=== PATIENT | male | born 1985 | race Caucasian/White ===

== ENCOUNTER 2016-07-27 20:59 | Emergency (ER) | payer OTHER ==
--- NOTE | 2016-07-27 21:09 | PDOC ---
History of Present Illness - General History Source: Patient Exam Limitations: No Limitations - History of Present Illness Initial Comments: 07/27/16 21:55 The patient is a 30 year old male with a significant past medical history of testicular cancer, lymphoma, and post-traumatic brain injury(s/p skateboard injury), who presents to the emergency department complaining of nausea, vomiting, diarrhea, and chills for approximately 2 days. The patient reports his pain began at approximately 16:00 yesterday. He reports associated diaphoresis, which woke him in the middle of the night. The patient states he has not eaten in the past 48 hours is unable to tolerate any solids or fluids. Patient states he woke up feeling slightly better and was able to work. But at approximately 14:00 he reports his symptoms worsened, and could barely drive. The patient reports shortness of breath, chest tightness, and epigastric abdominal pain secondary to cough. He rates his epigastric pain as an 8/10 when coughing. He reports left lower quadrant abdominal pain, nausea, vomiting, diarrhea, and fever, but denies hemoptysis, melena, or hematochezia. He reports a severe headache since yesterday. He reports taking excedrin for headache with no relief. The patient reports his symptoms today are similar to when he had lymphoma in the past. The patient denies any dysuria, hematuria, frequency, or urgency. He reports a burning sensation at the nasal bridge, but denies any rhinorrhea.The patient denies any recent travel or sick contacts. The patient states he has lost approximately 15 pounds within the past month, and has been feeling increasingly fatigued. PAST MEDICAL HISTORY: Testicular cancer, Lymphoma PAST SURGICAL HISTORY: Orchiectomy, Abdominal surgery for lymph node resection. FAMILY HISTORY: Diabetes. SOCIAL HISTORY: Pt lives with family and is employed. Current everyday smoker ( approximately 1 pack per week for the past 10 years.) MEDICATIONS: reviewed ALLERGIES: As per nursing notes. Sulfa( Sulfonamide antibiotics) ONCOLOGIST: Dr. Garcias (last visited 10 years ago). <Domo Gonzalez - Last Filed: 07/27/16 21:55> - General History Source: Patient Exam Limitations: No Limitations - History of Present Illness Initial Comments: 07/28/16 00:33 Assessment and plan: This is a 30-year-old male with extensive history of both lymphatic as well as testicular cancer who comes in complaining of fever chills cough congestion and feeling poorly. Patient was noted to have a fever here in the emergency room for which she was given Tylenol. Patient had a workup done which revealed an elevated d-dimer and a chest CT was done to rule out PE. In addition to that patient had had some abdominal pain nausea and vomiting so a CT of the abdomen and pelvis was done to rule out obstruction and rule out metastatic lesions. Patient had a normal white count with no left shift and the rest of his labs were unremarkable with the exception of the elevated d-dimer. Patient's CAT scans were negative for any acute pathology with the exception of his chest did show a left lower lobe infiltrate. Patient was given an IV dose of IV ceftriaxone and by mouth azithromycin. For his pneumonia Patient given a prescription for outpatient azithromycin Patient was told no work until Sunday and given a note Patient will follow-up with his primary care DrRichard if not improved by early next week <Katheryn Gusman I - Last Filed: 07/28/16 00:36> - General Chief Complaint: Respiratory Stated Complaint: CHILLS Time Seen by Provider: 07/27/16 21:09 Past History <Domo Gonzalez - Last Filed: 07/27/16 21:55> <Katheryn Gusman I - Last Filed: 07/28/16 00:36> - Past Medical History Allergies/Adverse Reactions: Allergies Allergy/AdvReac Type Severity Reaction Status Date / Time blueberry Allergy Mild Rash Verified 07/27/16 21:13 raspberry Allergy Mild Rash Verified 07/27/16 21:13 strawberry Allergy Mild Rash Verified 07/27/16 21:13 Sulfa (Sulfonamide Allergy Mild Rash Verified 07/27/16 21:13 Antibiotics) BERRIES Allergy Mild Rash Uncoded 07/27/16 21:13 Home Medications: Ambulatory Orders Azithromycin 250 mg PO DAILY #4 tablet 07/28/16 Review of Systems - Review of Systems Able to Perform ROS?: Yes Comments:: 07/27/16 21:46 General: Yes: +Fever, +chills, +body aches, +diaphoresis, +fatigue, +weight loss. HEENT: Yes: +Nasal bridge burning. No change in vision. No sore throat. No ear pain CardioVascular: Yes: +Shortness of breath, +chest pressure Respiratory: Yes: +Nonproductive cough. No wheezing. Gastrointestinal: Yes:+Epigastric/ +Left lower quadrant pain, +nausea, + vomiting, +diarrhea. No constipation or rectal bleeding. Genitourinary: No dysuria, hematuria, or frequency Musculoskeletal: No joint or muscle swelling Neurologic: Yes: +Headache. No vertigo, dizziness or loss of consciousness Psychiatric: No depression Skin: No rashes or easy bruising Endocrine: Yes: +Decreased thirst, +weight loss. Allergic: no skin or latex allergy All other systems reviewed and normal <Domo Gonzalez - Last Filed: 07/27/16 21:55> *Physical Exam - Vital Signs Last Vital Signs Temp Pulse Resp BP Pulse Ox 102.1 F H 89 16 110/68 93 L 07/27/16 21:01 07/27/16 21:01 07/27/16 21:01 07/27/16 21:01 07/27/16 21:01 - Physical Exam Comments: 07/27/16 21:43 General: Well-nourished well-developed individual, no acute distress HEENT: Throat: Normal, tonsils normal, no erythema or exudate. Dry mucous membranes. Neck: Supple, no meningeal signs, no lymphadenopathy Eyes: Pupils equal reactive and round, extraocular motion intact Chest: Nontender to palpation Cardiac: S1-S2 normal, regular rate and rhythm, no murmurs rubs or gallops Respiratory: Decreased breath sounds bilaterally. Abdomen: Soft, nondistended, normal bowel sounds. Tenderness to the left lower quadrant, but no guarding or rebound. Extremities: Warm, dry, no cyanosis, clubbing, or edema Skin: No rashes Neuro: Alert and oriented x3, nonfocal exam, grossly intact, normal gait Psych: Normal mood and affect <Domo Gonzalez - Last Filed: 07/27/16 21:55> ED Treatment Course - LABORATORY CBC & Chemistry Diagram: 07/27/16 21:30 07/27/16 21:30 <Domo Gonzalez - Last Filed: 07/27/16 21:55> - LABORATORY CBC & Chemistry Diagram: 07/27/16 21:30 07/27/16 21:30 <Katheryn Gusman Last Filed: 07/28/16 00:36> *DC/Admit/Observation/Transfer - Attestations Scribe Attestion: 07/27/16 21:43 Documentation prepared by Domo Gonzalez, acting as medical claims manager for Katheryn Gusman MD. <Domo Gonzalez - Last Filed: 07/27/16 21:55> - Discharge Dispostion Admit: No <Katheryn Gusman I - Last Filed: 07/28/16 00:36> Diagnosis at time of Disposition: Pneumonia Qualifiers: Pneumonia type: due to unspecified organism Laterality: left Lung location: lower lobe of lung Qualified Code(s): J18.1 - Lobar pneumonia, unspecified organism - Discharge Dispostion Disposition: HOME Condition at time of disposition: Good - Prescriptions Prescriptions: Azithromycin 250 mg PO DAILY #4 tablet - Patient Instructions Additional Instructions: Take Tylenol or Motrin as needed for fevers or pain. Take azithromycin 1 tablet a day for the next 4 days for the pneumonia. No work until Sunday stay at home, rest, and stay well-hydrated. Return to the emergency department immediately with ANY new, persistent or worsening symptoms. Continue any medications as previously prescribed by your physician. You should follow up with your primary doctor as soon as possible regarding today's emergency department visit. . Please make sure your doctor reviews the results of your emergency evaluation. Thank you for coming to the Emergency Department today for your care. It was a pleasure to see you today. Please note that your evaluation is INCOMPLETE until you follow-up with your doctor. - Post Discharge Activity Work/School Note: Back to Work
[2016-07-27 21:27] VITALS: BMI 28.9
[2016-07-27] MEDS ORDERED: ACETAMINOPHEN 1000 MG/100 ML VIAL (NON FORMULARY) IVPB ONE (22:06)
[2016-07-27] MEDS ORDERED: ACETAMINOPHEN INJECTION 100 ML IVPB ONE (22:06)
[2016-07-27 22:13] LABS: ACTIVATED PTT 29.6 SECONDS (24.0-38.9)
[2016-07-27 22:14] LABS: ALBUMIN 4.3 g/dl (3.5-5.0); ALK PHOS 68 U/L (32-92); ANION GAP 9 (8-16); BILIRUBIN,TOTAL 0.3 mg/dl (0.2-1.0); CALCIUM 9.3 mg/dl (8.4-10.2); CO2 25 mmol/L (22-28); CREATININE 0.9 mg/dl (0.6-1.3); GLUCOSE,RANDOM 105 mg/dl (74-106); SGOT/AST 15 U/L (10-42); SGPT/ALT 12 U/L (10-40); TOT PROT 7.1 g/dl (6.4-8.3)
[2016-07-27 22:17] LABS: BASOPHIL 0.4 % (0-2.0); EOSINOPHIL 1.1 % (0-4.5); INR 1.21 (0.82-1.09); MCH 27.2 pg (25.7-33.7); MCHC 33.4 g/dl (32.0-35.9); MEAN CELL VOLUME 81.4 fl (80-96); MEAN PLT VOLUME 8.8 fl (7.5-11.1); NEUTROPHILS 73.1 % (42.8-82.8); PLATELET COUNT 227 K/MM3 (134-434); PROTHROMBIN TIME (PATIENT) 13.5 SEC (10.2-13.0); RDW 12.8 % (11.9-15.9); WHITE BLOOD COUNT 10.8 K/mm3 (4.0-10.8)
[2016-07-27 22:30] LABS: VENOUS BLOOD GAS HCO3 25.9 meq/L (22-26); VENOUS PH 7.45 (7.35-7.45)
[2016-07-27 22:55] LABS: PH,URINE 6.5 (4.5-8); URINE APPEARANCE Clear; URINE BILIRUBIN Negative (NEGATIVE); URINE GLUCOSE (UA) Negative (NEGATIVE); URINE KETONE 1+ (NEGATIVE); URINE LEUK ESTERASE Negative (NEGATIVE); URINE NITRITE Negative (NEGATIVE); URINE PROTEIN Negative (NEGATIVE); URINE UROBILINOGEN 0.2 E.U/dl (0.2-1.0)
[2016-07-27 23:06] LABS: HIV 1 & 2 AB NEGATIVE; HIV 1 AGp24 NEGATIVE
[2016-07-27 23:10] LABS: URINE BLOOD 1+ (NEGATIVE); URINE COLOR YELLOW
[2016-07-27 23:13] LABS: URINE WBC 0-2 (3-5)
[2016-07-28 00:01] VITALS: BP 103/60; PULSE 68; TEMP 98.9
[2016-07-28] MEDS ORDERED: cefTRIAXone SODIUM 1 GM VIAL ONE (00:31)
[2016-07-28] MEDS ORDERED: CEFTRIAXONE 1 GM in DEXTROSE 5%-WATER - 50 ML IVPB ONE (00:31)
[2016-07-28] MEDS ORDERED: AZITHROMYCIN 250 MG TABLET (FP) PO ONE ×2 (00:31→00:39)
[2016-07-28] MEDS ORDERED: AZITHROMYCIN 250 MG TABLET (FP) ONE (00:38)
== END 2016-07-28 01:01 | disposition home or self-care (01) ==
LOC: FER 20:59
PROC: 3E033NZ Introduction of Analgesics, Hypnotics, Sedatives into Peripheral Vein, Percutaneous Approach (ICD-10-PCS; principal; 2016-07-27)
PROC: 3E03329 Introduction of Other Anti-infective into Peripheral Vein, Percutaneous Approach (ICD-10-PCS; 2016-07-27)
DX: J18.1 Lobar pneumonia, unspecified organism (principal); Z85.47 Personal history of malignant neoplasm of testis; C85.90 Non-Hodgkin lymphoma, unspecified, unspecified site; S06.9X0A Unspecified intracranial injury without loss of consciousness, initial encounter
CPT/HCPCS: 36415; 71010-TC; 71275-TC; 74177-TC; 74190-TC; 80053; 81003; 81015; 82803; 83605; 85025; 85379; 85610; 85730; 87040; 87389; 99284-25

== ENCOUNTER 2017-04-16 12:22 | Emergency (ER) | payer OTHER ==
[2017-04-16 12:28] VITALS: BP 120/77; PULSE 75; TEMP 98.4; BMI 25.9
--- NOTE | 2017-04-16 13:19 | PDOC ---
History of Present Illness - General Chief Complaint: Back Pain Stated Complaint: BACK PAIN Time Seen by Provider: 04/16/17 13:02 - History of Present Illness Initial Comments: 04/16/17 13:24 31yo M history of testicular and lymphatic cancer (s/p orchiectomy and abdominal lymph node dissection approx 8 years ago) and traumatic brain injury from skateboarding accident presents with 1 week of intermittent right-sided back pain after lifting an 80 pound amp. The patient reports his pain now is localized to the right lower back pain and radiates down his buttocks and his posterior right leg. He states the pain comes and goes, and he went to an urgent care clinic last week for the same. He reports he was prescribed a medication that was a little stronger than Motrin but only took it once because she said it didn't improve his pain. He reports the pain returned yesterday and this prompted him to present to the emergency department today. He reports he is worried that his cancer may have returned and requests an x-ray or MRI. He denies any fevers or chills. 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 He denies any weight loss or sweats or testicular pain. He denies any urinary/stool incontinence or retention. He denies any weakness in his legs or difficulty walking. He denies chest pain, shortness of breath, headaches, focal weakness or numbness. Past History - Past Medical History Allergies/Adverse Reactions: Allergies Allergy/AdvReac Type Severity Reaction Status Date / Time blueberry Allergy Mild Rash Verified 04/16/17 12:23 raspberry Allergy Mild Rash Verified 04/16/17 12:23 strawberry Allergy Mild Rash Verified 04/16/17 12:23 Sulfa (Sulfonamide Allergy Mild Rash Verified 04/16/17 12:23 Antibiotics) BERRIES Allergy Mild Rash Uncoded 04/16/17 12:23 Home Medications: Ambulatory Orders Cyclobenzaprine HCl [Flexeril 10 mg] 10 mg PO BID PRN #10 tablet 04/16/17 Naproxen 500 mg PO BID PRN #14 tablet 04/16/17 Anemia: No Asthma: No Cancer: Yes (TESTICULAR & LYMPHNODIC) Cardiac Disorders: No CVA: No COPD: No CHF: No Dementia: No Diabetes: No GI Disorders: No Disorders: No HTN: No Hypercholesterolemia: No Liver Disease: No Seizures: No Thyroid Disease: No - Surgical History Abdominal Surgery: Yes (Lymph nodes, incision to abdomen.) Appendectomy: No Cardiac Surgery: No Cholecystectomy: No Lung Surgery: No Neurologic Surgery: No Orthopedic Surgery: No - Suicide/Smoking/Psychosocial Hx Smoking History: Current every day smoker Have you smoked in the past 12 months: Yes Number of Cigarettes Smoked Daily: 4 Information on smoking cessation initiated: Yes 'Breaking Loose' booklet given: 04/16/17 Hx Alcohol Use: (weekly) Drug/Substance Use Hx: No Substance Use Type: None Hx Substance Use Treatment: No Review of Systems - Review of Systems Comments:: 04/16/17 13:30 GENERAL/CONSTITUTIONAL: No fever or chills. No weakness. HEAD, EYES, EARS, NOSE AND THROAT: No change in vision. No ear pain or discharge. No sore throat. GASTROINTESTINAL: No nausea, vomiting, diarrhea or constipation. GENITOURINARY: No dysuria, frequency, or change in urination. CARDIOVASCULAR: No chest pain or shortness of breath. RESPIRATORY: No cough, wheezing, or hemoptysis. MUSCULOSKELETAL: No joint or muscle swelling or pain. No neck pain. +back pain SKIN: No rash NEUROLOGIC: No headache, vertigo, loss of consciousness, or change in strength/ sensation. ENDOCRINE: No increased thirst. No abnormal weight change. HEMATOLOGIC/LYMPHATIC: No anemia, easy bleeding, or history of blood clots. ALLERGIC/IMMUNOLOGIC: No hives or skin allergy. *Physical Exam - Vital Signs Last Vital Signs Temp Pulse Resp BP Pulse Ox 98.4 F 75 18 120/77 100 04/16/17 12:22 04/16/17 12:22 04/16/17 12:22 04/16/17 12:22 04/16/17 12:22 - Physical Exam Comments: 04/16/17 13:30 GENERAL: Awake, alert, and fully oriented, in no acute distress HEAD: No signs of trauma EYES: PERRLA, EOMI, sclera anicteric, conjunctiva clear ENT: Auricles normal inspection, hearing grossly normal, nares patent, oropharynx clear without exudates. Moist mucosa NECK: Normal ROM, supple, no lymphadenopathy, JVD, or masses LUNGS: Breath sounds equal, clear to auscultation bilaterally. No wheezes, and no crackles HEART: Regular rate and rhythm, normal S1 and S2, no murmurs, rubs or gallops ABDOMEN: Soft, nontender, normoactive bowel sounds. No guarding, no rebound. No masses EXTREMITIES: Normal range of motion, no edema. No clubbing or cyanosis. No cords, erythema, or tenderness NEUROLOGICAL: Normal speech, cranial nerves intact, negative pronator drift, 5/ 5 strength in all 4 extremities, normal sensation to light touch in all 4 extremities, normal cerebellar exam, normal gait, normal reflexes and tone BACK: no midline cervical, thoracic, or lumbar ttp. +R paraspinal lumbar ttp. SKIN: Warm, Dry, normal turgor, no rashes or lesions noted. Medical Decision Making - Medical Decision Making 04/16/17 13:31 31-year-old male presents with right-sided back pain after lifting a heavy object 1 week ago. Vitals unremarkable. Exam remarkable only for right paraspinal lumbar tenderness to palpation. Pain is likely musculoskeletal pain, probable muscle spasm with sciatica. It is possible he may have also herniated a disc, however he has no lower extremity weakness or urinary incontinence or retention and also has normal reflexes and thus unlikely cauda equina. Given the history of cancer, will obtain radiographs of his back to look for metastatic lesions. In the meantime, will also treat pain with Toradol and Tylenol. Patient will be driving home and thus cannot give any medications at we 'll make him drowsy. *DC/Admit/Observation/Transfer Diagnosis at time of Disposition: Back pain - Discharge Dispostion Disposition: HOME Condition at time of disposition: Stable Admit: No - Prescriptions Prescriptions: Cyclobenzaprine HCl [Flexeril 10 mg] 10 mg PO BID PRN #10 tablet PRN Reason: Muscle Spasms Naproxen 500 mg PO BID PRN #14 tablet PRN Reason: Pain - Referrals Referrals: Marek Price MD [Staff Physician] - Driss Ellison MD [Staff Physician] - - Patient Instructions Printed Discharge Instructions: DI for Low Back Pain, DI for Thoracic Back Pain Additional Instructions: Call Dr. Price's office for a follow-up appointment within one week. Your x- rays in the emergency department were negative, however, you must follow-up with a primary doctor for further testing to make sure your not pain is due to cancer. Take naproxen twice a day as needed for back pain. Return to the emergency department if you have any new, worsening or concerning symptoms. - Post Discharge Activity - Attestations Physician Attestion: 04/16/17 14:47 I, Dr. Dinesh Cordero MD, attest that this document has been prepared under my direction and personally reviewed by me in its entirety. I further attest, that it accurately reflects all work, treatment, procedures and medical decision -making performed by me.
[2017-04-16] MEDS ORDERED: KETOROLAC TROMETHAMINE 15 MG/ML VIAL IM ONE (13:20)
[2017-04-16] MEDS ORDERED: ACETAMINOPHEN 500 MG TABLET (FP) PO ONE (13:21)
[2017-04-16] MEDS ORDERED: KETOROLAC TROMETHAMINE 15 MG/ML VIAL ONE (13:25)
[2017-04-16] MEDS ORDERED: ACETAMINOPHEN 500 MG TABLET (FP) ONE (13:25)
== END 2017-04-16 14:45 | disposition home or self-care (01) ==
LOC: FER 12:22
PROC: 3E0233Z Introduction of Anti-inflammatory into Muscle, Percutaneous Approach (ICD-10-PCS; principal; 2017-04-16)
DX: M54.9 Dorsalgia, unspecified (principal); Z85.47 Personal history of malignant neoplasm of testis; Z87.898 Personal history of other specified conditions; S06.9X0A Unspecified intracranial injury without loss of consciousness, initial encounter; F17.210 Nicotine dependence, cigarettes, uncomplicated
CPT/HCPCS: 72070-TC; 72100-TC; 96372; 99283-25

== ENCOUNTER 2018-03-18 06:21 | Emergency (ER) | payer OTHER ==
[2018-03-18 06:26] VITALS: BP 115/74; PULSE 69; TEMP 97.6; BMI 26.0
--- NOTE | 2018-03-18 06:35 | PDOC ---
History of Present Illness - General Chief Complaint: Hemorrhoids Stated Complaint: HEMORRHOIDS Past History - Past Medical History Allergies/Adverse Reactions: Allergies Allergy/AdvReac Type Severity Reaction Status Date / Time blueberry Allergy Mild Rash Verified 04/16/17 12:23 raspberry Allergy Mild Rash Verified 04/16/17 12:23 strawberry Allergy Mild Rash Verified 04/16/17 12:23 Sulfa (Sulfonamide Allergy Mild Rash Verified 04/16/17 12:23 Antibiotics) BERRIES Allergy Mild Rash Uncoded 04/16/17 12:23 Home Medications: Ambulatory Orders Hydrocortisone [Proctosol-Hc] 1 gm TP TID #1 tube 03/18/18 Lidocaine 2% Jelly [Xylocaine 2% Jelly -] 1 applic TP TID #1 tube 03/18/18 Anemia: No Asthma: No Cancer: Yes (TESTICULAR & LYMPHNODIC) Cardiac Disorders: No CVA: No COPD: No CHF: No Dementia: No Diabetes: No GI Disorders: No Disorders: No HTN: No Hypercholesterolemia: No Liver Disease: No Seizures: No Thyroid Disease: No - Surgical History Abdominal Surgery: Yes (Lymph nodes, incision to abdomen.) Appendectomy: No Cardiac Surgery: No Cholecystectomy: No Lung Surgery: No Neurologic Surgery: No Orthopedic Surgery: No - Suicide/Smoking/Psychosocial Hx Smoking History: Never smoked Have you smoked in the past 12 months: Yes Number of Cigarettes Smoked Daily: 4 'Breaking Loose' booklet given: 04/16/17 Hx Alcohol Use: (weekly) Drug/Substance Use Hx: No Substance Use Type: None Hx Substance Use Treatment: No *Physical Exam - Vital Signs Last Vital Signs Temp Pulse Resp BP Pulse Ox 97.6 F 69 16 115/74 98 03/18/18 06:22 03/18/18 06:22 03/18/18 06:22 03/18/18 06:22 03/18/18 06:22 Moderate Sedation - Procedure Monitoring Vital Signs: Procedure Monitoring Vital Signs Temperature 97.6 F 03/18/18 06:22 Pulse Rate 69 03/18/18 06:22 Respiratory Rate 16 03/18/18 06:22 Blood Pressure 115/74 03/18/18 06:22 O2 Sat by Pulse Oximetry (%) 98 03/18/18 06:22 *DC/Admit/Observation/Transfer Diagnosis at time of Disposition: Thrombosed external hemorrhoids - Discharge Dispostion Disposition: HOME Condition at time of disposition: Stable - Referrals Referrals: Shweta Nicole [Primary Care Provider] - Driss Alexander MD [Staff Physician] - 2 Days - Patient Instructions Printed Discharge Instructions: DI for Hemorrhoids Additional Instructions: Sitz baths in warm water at least 5-6 times per day and after bowel movements ProctosolHC to area 3 X day Lidocaine jelly to area 3 X day continue high fiber diet; avoid prolonged standing call Dr Alexander's office today to arrange appointment within 2-3 days - Post Discharge Activity
== END 2018-03-18 07:10 | disposition home or self-care (01) ==
LOC: FER 06:21
DX: K64.5 Perianal venous thrombosis (principal); Z87.891 Personal history of nicotine dependence
CPT/HCPCS: 99282-25

== ENCOUNTER 2019-02-24 09:52 | Emergency (ER) | payer SELFPAY ==
--- NOTE | 2019-02-24 10:06 | PDOC ---
History of Present Illness - General Chief Complaint: Back Pain Stated Complaint: BACK PAIN Time Seen by Provider: 02/24/19 10:06 - History of Present Illness Initial Comments: 02/24/19 10:56 Pt presents to the ED complaining of the acute onset of lumbar back pain after lifting his child over his head. Pain is sharp, stabbing, made worse by movement, and by coughing. Patient denies trauma. Pain is severe and radiates down his R leg. It is accompanied by slight numbness of his R thigh. Denies weakeness. Tried ibuprofen yesterday without relief. No bowel or bladder complaints. 02/24/19 11:12 Past History - Past Medical History Allergies/Adverse Reactions: Allergies Allergy/AdvReac Type Severity Reaction Status Date / Time blueberry Allergy Mild Rash Verified 04/16/17 12:23 raspberry Allergy Mild Rash Verified 04/16/17 12:23 strawberry Allergy Mild Rash Verified 04/16/17 12:23 Sulfa (Sulfonamide Allergy Mild Rash Verified 04/16/17 12:23 Antibiotics) BERRIES Allergy Mild Rash Uncoded 04/16/17 12:23 Home Medications: Ambulatory Orders NK [No Known Home Medication] 02/24/19 Anemia: No Asthma: No Cancer: Yes (TESTICULAR & LYMPHNODIC) Cardiac Disorders: No CVA: No COPD: No CHF: No Dementia: No Diabetes: No GI Disorders: No Disorders: No HTN: No Hypercholesterolemia: No Liver Disease: No Seizures: No Thyroid Disease: No - Surgical History Abdominal Surgery: Yes (Lymph nodes, incision to abdomen.) Appendectomy: No Cardiac Surgery: No Cholecystectomy: No Lung Surgery: No Neurologic Surgery: No Orthopedic Surgery: No - Psycho Social/Smoking Cessation Hx Smoking History: Never smoked Have you smoked in the past 12 months: Yes Number of Cigarettes Smoked Daily: 4 'Breaking Loose' booklet given: 04/16/17 Hx Alcohol Use: (weekly) Drug/Substance Use Hx: No Substance Use Type: None Hx Substance Use Treatment: No Review of Systems - Review of Systems Able to Perform ROS?: Yes Is the patient limited Italian proficient: No Constitutional: No: Symptoms Reported, See HPI, Chills, Diaphoresis, Fever, Loss of Appetite, Malaise, Night Sweats, Weakness, Weight Stable, Unintentional Wgt. Loss, Unexplained wgt Loss, Other HEENTM: No: Symptoms Reported, See HPI, Eye Pain, Blurred Vision, Tearing, Recent change in vision, Double Vision, Cataracts, Ear Pain, Ocular Prothesis, Ear Discharge, Nose Pain, Nose Congestion, Tinnitus, Nose Bleeding, Hearing Loss , Throat Pain, Throat Swelling, Mouth Pain, Dental Problems, Difficulty Swallowing, Mouth Swelling, Other Respiratory: No: Symptoms reported, See HPI, Cough, Orthopnea, Shortness of Breath, SOB with Exertion, SOB at Rest, Stridor, Wheezing, Productive cough, Hemoptysis, Other Cardiac (ROS): No: Symptoms Reported, See HPI, Chest Pain, Edema, Irregular Heart Rate, Lightheadedness, Palpitations, Syncope, Chest Tightness, Other ABD/GI: No: Symptoms Reported, See HPI, Abdominal Distended, Abd. Pain w/ defecation, Blood Streaked Bowels, Constipated, Diarrhea, Difficulty Swallowing , Nausea, Poor Appetite, Poor Fluid Intake, Rectal Bleeding, Vomiting, Indigestion, Abdominal cramping, Tarry Stools, Other : No: Symptoms Reported, See HPI, Burning, Dysuria, Discharge, Frequency, Flank Pain, Hematuria, Incontinence, Pain, Urgency, Testicular Mass, Testicular Swelling, Lesions, Testicular Pain, Other Musculoskeletal: Yes: Back Pain. No: Symptoms Reported, See HPI, Gout, Joint Pain, Joint Swelling, Muscle Pain, Muscle Weakness, Neck Pain, Joint Stiffness, Other All Other Systems: Reviewed and Negative *Physical Exam - Physical Exam 02/24/19 11:12 Gen: alert, NAD CV: rrr no m/r/g Pulm: CTA b/l Abdomen: soft, non tender, non distended no Medical Decision Making - Medical Decision Making 02/24/19 11:36 Patient presents to the ED complaining of atraumatic back pain. Xray checked to rule out lytic lesions given history of malignancy and is negative. Pain improved after toradol and lidocaine patch in the ED. Will discharge home. Discharge - Discharge Information Problems reviewed: Yes Clinical Impression/Diagnosis: Back pain Qualifiers: Back pain location: low back pain Chronicity: acute Back pain laterality: right Sciatica presence: without sciatica Qualified Code(s): M54.5 - Low back pain Condition: Good Disposition: HOME - Admission No - Additional Discharge Information Prescription Drug Monitoring Program (I-STOP) results: I-STOP not reviewed - Follow up/Referral - Patient Discharge Instructions Patient Printed Discharge Instructions: DI for Low Back Pain Additional Instructions: you came to the ED for pain in your back. we did an xray, which showed scoliosis, but not a fracture. you should take ibuprofen for the pain and use a lidocaine patch. You should return immediately to the Ed for severe pain, problems controlling your bowels or your bladder, weakness in your legs. Follow up with your primary care doctor. - Post Discharge Activity Work/Back to School Note: Back to Work
[2019-02-24 10:07] VITALS: BP 118/67; PULSE 70; TEMP 97.9; BMI 25.8
[2019-02-24] MEDS ORDERED: LIDOCAINE 5% TOPICAL PATCH TP ONE (10:24)
[2019-02-24] MEDS ORDERED: KETOROLAC TROMETHAMINE 60 MG/2 ML VIAL IM ONE (10:24)
[2019-02-24] MEDS ORDERED: LIDOCAINE 5% TOPICAL PATCH ONE (10:26)
[2019-02-24] MEDS ORDERED: KETOROLAC TROMETHAMINE 60 MG/2 ML VIAL ONE (10:26)
[2019-02-24] MEDS ORDERED: LIDOCAINE PATCH REMOVAL MC SCH (22:00)
== END 2019-02-24 11:55 | disposition home or self-care (01) ==
LOC: FER 09:52
PROC: 3E0233Z Introduction of Anti-inflammatory into Muscle, Percutaneous Approach (ICD-10-PCS; principal; 2019-02-24)
DX: M54.5 Low back pain (principal); Z72.0 Tobacco use; Z91.018 Allergy to other foods; Z85.47 Personal history of malignant neoplasm of testis
CPT/HCPCS: 72070-TC-FY; 72100-TC-FY; 99282-25

== ENCOUNTER 2019-04-16 14:26 | Emergency (ER) | payer OTHER ==
[2019-04-16] MEDS ORDERED: SODIUM CHLORIDE 1,000 ML IV STA (14:39)
--- NOTE | 2019-04-16 14:39 | PDOC ---
Rapid Medical Evaluation Time Seen by Provider: 04/16/19 14:36 Medical Evaluation: Allergies Allergy/AdvReac Type Severity Reaction Status Date / Time blueberry Allergy Mild Rash Verified 04/16/19 14:34 raspberry Allergy Mild Rash Verified 04/16/19 14:34 strawberry Allergy Mild Rash Verified 04/16/19 14:34 Sulfa (Sulfonamide Allergy Mild Rash Verified 04/16/19 14:34 Antibiotics) BERRIES Allergy Mild Rash Uncoded 04/16/19 14:34 04/16/19 14:36 Pt presents for 2 days of fever, vomiting and RLQ pain. Was seen at urgent care and told to come to the ER for further evaluation. Also states that he may have been exposed to pesticides at work. H/O testicular cancer with L orechtomy and abdominal surgery to remove lymph nodes. Exam: TTP of the RLQ Orders: Labs, IV Pt to proceed to the ER for further evaluation Discharge Disposition - Diagnosis Abdominal pain Qualifiers: Abdominal location: right lower quadrant Qualified Code(s): R10.31 - Right lower quadrant pain - Referrals - Patient Instructions - Post Discharge Activity
[2019-04-16 14:40] VITALS: BMI 25.4
[2019-04-16 16:59] LABS: BASO % 0.3 % (0-2.0); EOS % 1.6 % (0-4.5); HEMATOCRIT 44.8 % (35.4-49); HEMOGLOBIN 14.5 GM/dL (11.7-16.9); MCH 27.3 pg (25.7-33.7); MCHC 32.4 g/dl (32.0-35.9); MEAN CELL VOLUME 84.2 fl (80-96); MEAN PLT VOLUME 8.5 fl (7.5-11.1); MONO % 5.2 % (3.8-10.2); NEUT % 62.9 % (42.8-82.8); PLATELET COUNT 280 K/MM3 (134-434); RBC 5.32 M/mm3 (4.00-5.60); RDW 13.9 % (11.9-15.9); WHITE BLOOD COUNT 11.4 K/mm3 (4.0-10.0)
--- NOTE | 2019-04-16 17:04 | PDOC ---
History of Present Illness - General Chief Complaint: Nausea/Vomiting Stated Complaint: SENT BY PCP/VOMITING Time Seen by Provider: 04/16/19 14:36 History Source: Patient Exam Limitations: No Limitations - History of Present Illness Initial Comments: 04/16/19 16:59 Patient is a 33-year-old male with a history of testicular cancer treated with an orchiectomy and lymphoma treated with lymph node resection 10 years ago. The patient states he never had chemo or radiation. He presents to the ED for evaluation of vomiting since yesterday. He states his vomiting is nonbloody and nonbilious. He is passing gas. He does admit to intermittent right mid abdominal pain for the last 5 to 6 months. He has not seen an oncologist or primary doctor in over a year secondary to not having insurance. He denies any fevers or chills. He does admit to having no energy. Past History - Past Medical History Allergies/Adverse Reactions: Allergies Allergy/AdvReac Type Severity Reaction Status Date / Time blueberry Allergy Mild Rash Verified 04/16/19 14:34 raspberry Allergy Mild Rash Verified 04/16/19 14:34 strawberry Allergy Mild Rash Verified 04/16/19 14:34 Sulfa (Sulfonamide Allergy Mild Rash Verified 04/16/19 14:34 Antibiotics) BERRIES Allergy Mild Rash Uncoded 04/16/19 14:34 Anemia: No Asthma: No Cancer: Yes (TESTICULAR & LYMPHNODIC) Cardiac Disorders: No CVA: No COPD: No CHF: No Dementia: No Diabetes: No GI Disorders: No Disorders: No HTN: No Hypercholesterolemia: No Liver Disease: No Seizures: No Thyroid Disease: No - Surgical History Abdominal Surgery: Yes (Lymph nodes, incision to abdomen.) Appendectomy: No Cardiac Surgery: No Cholecystectomy: No Lung Surgery: No Neurologic Surgery: No Orthopedic Surgery: No - Psycho Social/Smoking Cessation Hx Smoking History: Former smoker Have you smoked in the past 12 months: No Number of Cigarettes Smoked Daily: 4 If you are a former smoker, when did you quit?: 2019 Information on smoking cessation initiated: No 'Breaking Loose' booklet given: 02/24/19 Hx Alcohol Use: No Drug/Substance Use Hx: No Substance Use Type: None Hx Substance Use Treatment: No Review of Systems - Review of Systems Comments:: 04/16/19 17:00 - Review of Systems Able to Perform ROS?: Yes Constitutional: No: Fever, Chills, Loss of Appetite, Night Sweats, Weakness; Positive malaise HEENTM: No: Eye Pain, Vision changes, Ear Pain, Throat Pain, Throat Swelling, Mouth Pain, Difficulty Swallowing Respiratory: No: Cough, Shortness of Breath, Wheezing, Sputum Production Cardiac (ROS): No: Chest Pain, Chest Tightness, Palpitations, Irregular Heart Beat, Edema ABD/GI: No: Diarrhea; Positive Nausea, Vomiting, Abdominal Pain : No Dysuria, No Hematuria, No Frequency, No Urgency, No Vaginal Discharge/ Pain, No Penile Discharge/Pain Musculoskeletal: No: Muscle Pain, Back Pain, Joint Pain, Muscle Weakness, Neck Pain Integumentary: No: Lesions, Rash Neurological: No: Headache, Numbness, Tingling, Weakness, Speech Difficulties *Physical Exam - Vital Signs Last Vital Signs Temp Pulse Resp BP Pulse Ox 97.8 F 74 18 121/55 L 98 04/16/19 14:34 04/16/19 14:34 04/16/19 14:34 04/16/19 14:34 04/16/19 14:34 - Physical Exam 04/16/19 17:01 - Physical Exam General Appearance: Nourished, Appropriately Dressed, No Distress HEENT: EOMI, Normal Voice, No Pharyngeal Erythema, No Muffled/Hoarse voice, No Nasal Congestion, No Rhinorrhea, Hearing Grossly Normal Neck: Supple, No Lymphadenopathy (R), No Lymphadenopathy (L), No Rigidity, No Decreased range of motion Respiratory/Chest: Lungs Clear, Normal Breath Sounds. No Respiratory Distress, No Accessory Muscle Use Cardiovascular: Regular Rhythm, Regular Rate, S1, S2 Gastrointestinal/Abdominal: Normal Bowel Sounds, Soft. Mild tenderness to palpation to the right mid abdomen no rebound, no guarding, no rigidity. No CVA tenderness. Musculoskeletal: Normal Inspection. No Decreased Range of Motion Extremity: Normal Capillary Refill, Normal Inspection Integumentary: Normal Color, Dry. No Rash Neurologic: training associate II-XII NML intact, Fully Oriented, Alert, Normal Mood/Affect, Normal Response ED Treatment Course - LABORATORY CBC & Chemistry Diagram: 04/16/19 15:46 04/16/19 15:46 - RADIOLOGY Radiology Studies Ordered: Category Date Time Status ABDOMEN FLAT & UPRIGHT [RAD] Stat Radiology 04/16/19 16:57 Ordered - Medications Given in the ED: ED Medications Discontinued Medications Generic Name Dose Route Start Last Admin Trade Name Edouard PRN Reason Stop Dose Admin Sodium Chloride 1,000 mls @ 1,000 mls/hr 04/16/19 14:39 04/16/19 15:50 Normal Saline - IV 04/16/19 15:38 1,000 mls/hr ASDIR STA Administration Medical Decision Making - Medical Decision Making 04/16/19 17:03 Patient is a 33-year-old male who presents to the ED with vomiting and malaise since yesterday. He denies any flulike symptoms. He does have a history of testicular cancer with orchiectomy and lymphoma for which was treated with a resection. Patient does admit to having 5 to 6 months of right mid abdominal pain that is intermittent. -We will send labs for further evaluation -The patient had an IV started with fluids going but he requested to be removed secondary to discomfort in his arm where the IV was -We will get an abdominal x-ray flat and upright to assess for SBO -We will reassess 04/16/19 18:22 The patient's chemistry was canceled likely secondary to hemolysis and the patient is refusing a redraw. He states he would just like to go home. He is eating in the ED without difficulty. We will refer the patient to her primary doctor as well as an oncologist for further evaluation and treatment. He has been made aware that his CBC shows slight elevation of his white count which is nonspecific. His abdominal x-ray does not show concerns for SBO. The patient has been given strict return precautions such as profuse vomiting, severe abdominal pain, high fevers or any other worsening symptoms. He understands and agrees with this treatment and plan and the patient is stable for discharge. Discharge - Discharge Information Problems reviewed: Yes Clinical Impression/Diagnosis: Vomiting alone Abdominal pain Qualifiers: Abdominal location: right lower quadrant Qualified Code(s): R10.31 - Right lower quadrant pain Condition: Stable Disposition: HOME - Follow up/Referral Referrals: [facility] [Provider Group] - 3 days Anil Zamora [Staff Physician] - 1 week - Patient Discharge Instructions Patient Printed Discharge Instructions: DI for Vomiting -- Adult Additional Instructions: Get plenty of rest and drink plenty of fluids. Eat a bland diet for the next several days. Be sure to follow-up with the referred primary doctor as well as oncology for further evaluation and treatment. Return to the emergency department for worsening abdominal pain, profuse vomiting, high fevers or any other worsening symptoms. - Post Discharge Activity Work/Back to School Note: Back to Work
[2019-04-16 17:18] LABS: PH,URINE >= 9.0 (5.0-8.0); URINE APPEARANCE CLOUDY; URINE BILIRUBIN NEGATIVE (NEGATIVE); URINE COLOR YELLOW; URINE GLUCOSE (UA) NEGATIVE (NEGATIVE); URINE KETONE NEGATIVE (NEGATIVE); URINE LEUK ESTERASE NEGATIVE (NEGATIVE); URINE NITRITE NEGATIVE (NEGATIVE); URINE PROTEIN NEGATIVE (NEGATIVE); URINE UROBILINOGEN 0.2 mg/dL (0.2-1.0)
[2019-04-16 18:27] VITALS: BP 120/58; PULSE 68; TEMP 98
== END 2019-04-16 18:34 | disposition home or self-care (01) ==
LOC: JER 14:26
PROC: 3E0337Z Introduction of Electrolytic and Water Balance Substance into Peripheral Vein, Percutaneous Approach (ICD-10-PCS; principal; 2019-04-16)
DX: R11.10 Vomiting, unspecified (principal); R10.31 Right lower quadrant pain; Z85.47 Personal history of malignant neoplasm of testis; Z91.018 Allergy to other foods
CPT/HCPCS: 36415; 74019-TC-FY; 81003; 85025; 87086; 99282-25; J7030

== ENCOUNTER 2021-06-22 12:09 | Emergency (ER) | payer SELFPAY ==
[2021-06-22 12:33] VITALS: BP 110/75; PULSE 79; TEMP 98.6; BMI 27.2
[2021-06-22] MEDS ORDERED: ACETAMINOPHEN 325 MG TABLET (FP) PO ONE (12:46)
[2021-06-22] MEDS ORDERED: ACETAMINOPHEN 325 MG TABLET (FP) ONE (12:49)
== END 2021-06-22 13:02 | disposition home or self-care (01) ==
LOC: FER 12:09
DX: B34.9 Viral infection, unspecified (principal)
CPT/HCPCS: 99283-25